=== PATIENT | female | born 1980 | race Caucasian/White ===

== ENCOUNTER → 2019-08-12 | Outpatient (CLI) | payer OTHER | END | disposition home or self-care (01) | LOC: RAD 14:56 | PROVIDERS: ATTEND Neurological Surgery | DX: Z01.818 Encounter for other preprocedural examination (principal); M48.061 Spinal stenosis, lumbar region without neurogenic claudication; M41.86 Other forms of scoliosis, lumbar region | CPT/HCPCS: 71046; 72110; 93005 ==